=== PATIENT | female | born 1975 | race Caucasian/White ===

== ENCOUNTER 2018-04-19 19:18 | Emergency (ER) | payer OTHER ==
[~2018-04-19] VITALS: Ht 160 cm; Wt 77.1 kg
[~2018-04-19 19:18] MED LIST: CARAFATE 1 GM TA1 G1 PO; DEPLIN-ALGAL O1 EACH PO; HYDROCODONE-AP1 EAC6 PO; ONDANSETRON HCL4 M2 PO; PEPCID20 MG PO; PRILOSEC 20 MG20 MG PO; PROTONIX40 M1 PO; ZPAK PO
[2018-04-19] MEDS ORDERED: NEXIUM40 MG PO (19:50)
[2018-04-19] MEDS ORDERED: ZOLOFT25 MG PO (19:50)
[2018-04-19 20:19] LABS: ABSOLUTE EOSINOPHILS 0.2 thou/uL (0.0-0.7); ABSOLUTE LYMPHOCYTES 2.1 thou/uL (0.8-5.3); ABSOLUTE MONOCYTES 0.7 thou/uL (0.0-1.2); BASOPHILS 0.6 %; EOSINOPHILS 2.3 %; HEMATOCRIT 40.9 % (37.0-47.0); HEMOGLOBIN 13.9 gm/dL (12.0-15.0); LYMPHOCYTES 30.3 %; MCV 88.2 fL (80.0-100.0); MONOCYTES 9.9 %; MPV 7.9 fl. (7.2-11.1); NUCLEATED RBCS 0 /100WBC; PLATELET COUNT* 289 thou/uL (150-400); POLYS 56.9 %; RBC 4.64 mil/uL (4.20-5.00)
[2018-04-19 20:26] LABS: CALCIUM 8.1 mg/dL (8.5-10.1); CREATININE 0.7 mg/dL (0.6-1.3)
[2018-04-19 20:30] LABS: POTASSIUM 2.5 mmol/L (3.5-5.1)
[2018-04-19 20:31] LABS: ALBUMIN 3.3 g/dL (3.4-5.0); TOTAL BILIRUBIN 0.5 mg/dL (<0.1-1.0); TOTAL PROTEIN 6.8 g/dL (6.4-8.2)
[2018-04-19 20:35] LABS: URINE BILIRUBIN NEGATIVE (Negative); URINE BLOOD 1+ (Negative); URINE CLARITY HAZY; URINE COLOR YELLOW; URINE GLUCOSE-RANDOM NEGATIVE (Negative); URINE KETONES NEGATIVE (Negative); URINE LEUKOCYTES-REFLEX NEGATIVE (Negative); URINE NITRITE-REFLEX NEGATIVE (Negative); URINE PROTEIN NEGATIVE (Negative); URINE UROBILINOGEN 0.2 E.U./dl (0.2-1.0)
[2018-04-19 20:41] LABS: BACTERIA-REFLEX None Seen /HPF (None Seen); CASTS None Seen /LPF (None Seen); CRYSTALS None Seen /LPF (None Seen); MUCUS 0-3 Light strn/LPF (None Seen); SQUAMOUS >10 Many /LPF (0-3); URINE RBC 3-10 Few /HPF (0-2); URINE WBC-REFLEX None Seen /HPF (0-5)
[2018-04-19 20:48] LABS: LIPASE 154 U/L (73-393); TROPONIN-I LEVEL <0.06 ng/mL (<0.06)
[2018-04-19] MEDS ORDERED: K-DUR 20 MEQ T20 MEQ PO (21:53)
[2018-04-19 22:12] VITALS: BP 126/76
--- NOTE | 2018-04-20 11:54 | EKG ---
[place] [address] ELECTROCARDIOGRAM REPORT Name: CHICHI Yas Room: [facility]#: [id number] Admission: 04/19/18 Attend Phys: Discharge: 04/19/18 Date of : 75 Report #: [id number] THIS REPORT FOR: //name// [facility] ED Test Date: 2018-04-19 Test Time: 20:14:33 Pat Name: ANGELA CADET Department: Room: Gender: F Manager Bank: Yas BENITEZ : 1975 Requested By: Lexi Arzola Order Number: [id number] MD: Bebo Stearns Measurements Intervals [place] Rate: 55 P: 0 IN: 133 QRS: 62 QRSD: 92 T: 2 QT: 455 QTc: 436 Interpretive Statements Sinus bradycardia nonspecific st changes Compared to ECG 02/18/2017 21:25:08 no change Electronically Signed On 04-20-2018 11:54:21 PHOTOGRAPHIC LITHOGRAPHER by Bebo Stearns [email or web address] <ELECTRONICALLY SIGNED> By: Bebo Stearns MD, [facility] 04/20/18 1154 13 13 Bebo Stearns MD, FACC /EPI
== END 2018-04-19 22:15 | disposition home or self-care (01) ==
LOC: M.ERS 19:18
PROVIDERS: Nurse Practitioner Family
DX: R19.7 Diarrhea, unspecified (principal); E87.6 Hypokalemia; K21.9 Gastro-esophageal reflux disease without esophagitis; Z90.49 Acquired absence of other specified parts of digestive tract; Z88.8 Allergy status to other drugs, medicaments and biological substances